=== PATIENT | female | born 1980 | race Caucasian/White ===

== ENCOUNTER 2018-04-19 11:45 | Inpatient (IN) | payer MEDICAID ==
[~2018-04-19] VITALS: Ht 160 cm; Wt 159.7 kg
[2018-04-19 11:53] VITALS: BP 159/93
--- NOTE | 2018-04-19 11:57 | NUR ---
PT AMBULATED TO ER BED 02
--- NOTE | 2018-04-19 12:15 | NUR ---
PATIENT PRESENTS TO ED WITH THE CHIEF C/O COLD SYMPTOMS AND LOWER BACK PAIN SINCE 3 DAYS. PT STATES SHE IS HAVING BLOOD IN SPUTUM FOR 3 DAYS. PT REPORTS FEVER, CHILLS AND VOMITING. AFEBRILE AT THIS TIME. WHEEZING LEFT LUNG. DENIES ANY FALL OR INJURY. . DENIES N/D AT THIS TIME. SKIN IS PINK/WARM/DRY. AAOX4 WITH EVEN AND STEADY GAIT. HR EVEN AND REGULAR. PT C/O SOB, AND DIZZINESS AFTER COUGH. PATIENT STATES PAIN OF 10/10 AT THIS TIME. VSS. PATIENT POSITIONED FOR COMFORT; HOB ELEVATED; BEDRAILS UP X2; BED DOWN. ER MD MADE AWARE OF PT STATUS.
[2018-04-19] MEDS ORDERED: KETOROLAC 60 MG/2 ML VIAL IM ONE (12:20)
--- NOTE | 2018-04-19 12:24 | NUR ---
SEEN BY ANAND LAWTON.
--- NOTE | 2018-04-19 12:25 | NUR ---
PT UNABLE TO GIVE ENOUGH URINE SAMPLE. PROVIDED WATER TO DRINK.
--- NOTE | 2018-04-19 12:34 | NUR ---
FLU SWAB TAKEN BY LAB.
--- NOTE | 2018-04-19 12:35 | NUR ---
PT TAKEN TO X-RAY.
[2018-04-19] MEDS ORDERED: NACL 0.9% 1,000 ML IV SCH (13:44)
[2018-04-19] MEDS ORDERED: IPRATROPIUM 0.02% 0.5 MG/2.5 ML NEBU INH ONE (13:45)
[2018-04-19] MEDS ORDERED: ALBUTEROL 0.083% 2.5 MG/3 ML NEBU INH ONE (13:45)
[2018-04-19] MEDS ORDERED: AZITHROMYCIN 250 MG TAB PO ONE (13:45)
--- NOTE | 2018-04-19 14:02 | NUR ---
[facility] THERAPY AND RESPIRATORY DRUGS GIVEN ORDERED Addendum: 04/19/18 at 1430 by MCACPA POST [facility] THERAPY PLACED BACK ON SUPPLEMENTAL OXYGEN AT 2 LPM VIA NC
[2018-04-19 14:06] LABS: BASOPHILS % (AUTO) 0.4 % (0.0-2.0); EOSINOPHILS # (AUTO) 0.1 K/uL (0-0.4); EOSINOPHILS % (AUTO) 1.5 % (0.0-4.0); HEMATOCRIT 37.6 % (36-48); HEMOGLOBIN 12.3 g/dL (12.0-16.0); LYMPHOCYTES # (AUTO) 0.8 K/uL (2.5-16.5); LYMPHOCYTES % (AUTO) 15.7 % (20.5-51.1); MEAN CORPUSCULAR HEMOGLOBIN 28 pg (27-31); MEAN CORPUSCULAR HGB CONC 33 g/dL (33-37); MEAN CORPUSCULAR VOLUME 86.4 fL (80-94); MONOCYTES # (AUTO) 0.4 K/uL (0.8-1.0); MONOCYTES % (AUTO) 8.8 % (1.7-9.3); NEUTROPHILS # (AUTO) 3.8 K/uL (1.8-7.7); NEUTROPHILS % (AUTO) 73.6 % (42.2-75.2); PLATELET COUNT (AUTO) 227 K/uL (140-450); RED BLOOD CELL COUNT(AUTO) 4.36 MIL/uL (4.20-5.40); RED CELL DISTRIBUTION WIDTH 16.1 % (11.6-13.7); WHITE BLOOD COUNT (AUTO) 5.1 K/uL (4.8-10.8)
[2018-04-19 14:20] LABS: CARBON DIOXIDE 28.5 mmol/L (21-32)
[2018-04-19 14:28] LABS: ALBUMIN 3.3 g/dL (3.4-5.0); ANION GAP 10.4 (8-16); CREATININE 0.7 mg/dL (0.6-1.3); POTASSIUM 3.9 mmol/L (3.5-5.1); TOTAL BILIRUBIN 0.3 mg/dL (0.0-1.0)
[2018-04-19] MEDS ORDERED: cefTRIAXone 1,000 MG VIAL ONE (14:51)
[2018-04-19] MEDS ORDERED: OSELTAMIVIR PHOSPHATE 75 MG CAP PO ONE (15:05)
[2018-04-19] MEDS ORDERED: IBUP-2213 PO (16:04)
[2018-04-19 16:14] LABS: APPEARANCE,URINE CLEAR (CLEAR); BILIRUBIN,URINE NEGATIVE (NEGATIVE); BLOOD, URINE TRACE-L (NEGATIVE); COLOR,URINE YELLOW (YELLOW); LEUKOCYTE ESTERASE ,URINE TRACE (NEGATIVE); NITRITE, URINE NEGATIVE (NEGATIVE); UGLUCOSE NEGATIVE (NEGATIVE)
[2018-04-19 16:31] LABS: RBC,URINE 0-5 /HPF (0-5)
[2018-04-19 16:32] LABS: WBC,URINE 0-5 /HPF (0-5)
[2018-04-19] MEDS: NACL 0.9% 1,000 ML IV SCH (16:35)
[2018-04-19] MEDS ORDERED: ZOLPIDEM 5 MG TAB PO PRN (16:35)
[2018-04-19] MEDS ORDERED: DOCUSATE SODIUM 100 MG GELCAP PO PRN (16:35)
[2018-04-19] MEDS ORDERED: ONDANSETRON 4 MG/2 ML VIAL IM/IVP PRN (16:35)
[2018-04-19] MEDS ORDERED: LORazepam 2 MG/ML VIAL IM/IVP PRN (16:35)
[2018-04-19] MEDS ORDERED: KETOROLAC 30 MG/ML VIAL IVP PRN (16:35)
[2018-04-19] MEDS: MORPHINE SULFATE 2 MG/ML SYR IVP PRN ×2 (16:52→20:34)
[2018-04-19] MEDS ORDERED: guaiFENesin/CODEINE 100/10MG 5 ML UDC PO PRN (16:55)
--- NOTE | 2018-04-19 17:00 | NUR ---
PT TRANSFERRED TO MED/SURG ROOM 106B VIA GURROBERT LEE ON STABLE CONDITION. BELONGINGS WITH PT. REPORT GIVEN TO ESTELA PEACOCK.
[2018-04-19 17:15] VITALS: BP 123/67
--- NOTE | 2018-04-19 17:30 | NUR ---
RECEIVED PT FROM ED NURSE NATIVIDAD. PT IS ALERT AND AWAKE, MAINLY TURKISH SPEAKING, BUT UNDERSTANDS AND SPEAKS SOME KHMER. DAUGHTER AT BEDSIDE. PT IS ON ROOM AIR, SKIN IS INTACT. IV SITE IS ON THE L HAND, 22 GAUGE, PATENT AND INTACT. VS STABLE, TEMP 99.4. BRSA SWAB COLLECTED AND SMALL AMOUNT OF SPUTUM OBTAINED, WILL TAKE TO LAB. PT IS AMBULATORY. CALL LIGHT GIVEN TO PT. WILL CONTINUE TO MONITOR.
[2018-04-19 17:52] LABS: BARBITURATE, URINE NEG. ng/ml (NEG <=200); BENZODIAZEPINE, URINE NEG. ng/mL (NEG <=200); CANNABINOID, URINE NEG. ng/mL (NEG <=50); COCAINE, URINE NEG. ng/mL (NEG <=300); OPIATE, URINE NEG. ng/mL (NEG <=2000); PHENCYCLIDINE SCREEN,URINE NEG. ng/mL (NEG <=25)
[2018-04-19 17:58] LABS: PROTHROMBIN TIME 9.9 secs (10.8-13.4)
[2018-04-19 17:59] LABS: MAGNESIUM 1.9 mg/dL (1.8-2.4); THYROID STIMULATING HORMONE 4.14 uIU/mL (0.34-3.74)
[2018-04-19] MEDS: AMPICILLIN/SULBACTAM 3 GM in NACL 0.9% 100 ML IV SCH ×2 (18:25→23:39)
[2018-04-19] MEDS: ALBUTEROL SULFATE/IPRATROPIU 3 ML SOL IH SCH (18:43)
--- NOTE | 2018-04-19 18:50 | NUR ---
RT CURRENTLY WORKING WITH PT. PT'S RA SAT IS 85%, RT THERAPIST IS PLACING PT ON 2 L O2 NC AT THIS TIME.
--- NOTE | 2018-04-19 19:27 | NUR ---
PT ENDORSED TO ALLERGY AND IMMUNOLOGY SPECIALIST IN STABLE CONDITION
--- NOTE | 2018-04-19 19:30 | NUR ---
RECEIVED ENDORSEMENT FROM AM SHIFT RN; PATIENT IS A/Ox4, TURKMEN SPEAKING, BUT UNDERSTANDS AND SPEAKS SOME [place]. ABLE TO MAKE NEEDS KNOWN. DAUGHTER AT BEDSIDE. INTRODUCED SELF, UPDATED BOARD. PT IS ON O2, RUNNING AT 2LPM VIA NASAL CANNULA, NO SOB OR DISTRESS NOTED. SKIN IS INTACT. IV SITE IS ON THE L HAND, 22 GAUGE, PATENT AND INTACT. PATIENT IS AMBULATORY. BED IN THE LOWEST POSITION, CALL LIGHT WITHIN REACH. INITIAL ASSESSMENT DONE. WILL CONTINUE TO MONITOR.
[2018-04-19] MEDS: guaiFENesin 600 MG TABER PO SCH (20:29)
[2018-04-19] MEDS: ACETAMINOPHEN 325 MG TAB PO PRN (21:28)
--- NOTE | 2018-04-19 22:10 | NUR ---
CHECKS MADE, PATIENT IS SITTING ON CHAIR AND TALKING WITH HER DAUGHTER. NO DISTRESS NOTED.
[2018-04-20] VITALS: BP 122/68
--- NOTE | 2018-04-20 00:30 | NUR ---
VITALS TAKEN, NO DISTRESS NOTED.
[2018-04-20] MEDS: NACL 0.9% 1,000 ML IV SCH ×3 (00:44→19:53)
[2018-04-20] MEDS: ALBUTEROL SULFATE/IPRATROPIU 3 ML SOL IH PRN ×2 (01:46→21:43)
--- NOTE | 2018-04-20 02:30 | NUR ---
ROUNDS DONE, PATIENT ASLEEP, EYES CLOSED, VISIBLE CHEST RISE AND FALL NOTED.
[2018-04-20] MEDS: AMPICILLIN/SULBACTAM 3 GM in NACL 0.9% 100 ML IV SCH (05:10)
--- NOTE | 2018-04-20 05:10 | NUR ---
DUE MED GIVEN. PATIENT AWAKE, ASKED IF SHE WAS IN ANY DISTRESS, VERBALLY RESPONDED WITH "NO. I AM OK".
[2018-04-20 06:38] LABS: BASOPHILS % (AUTO) 0.3 % (0.0-2.0); EOSINOPHILS % (AUTO) 0.4 % (0.0-4.0); HEMATOCRIT 35.5 % (36-48); HEMOGLOBIN 11.8 g/dL (12.0-16.0); LYMPHOCYTES % (AUTO) 19.4 % (20.5-51.1); MEAN CORPUSCULAR HEMOGLOBIN 29 pg (27-31); MEAN CORPUSCULAR HGB CONC 33 g/dL (33-37); MEAN CORPUSCULAR VOLUME 85.9 fL (80-94); MONOCYTES # (AUTO) 0.4 K/uL (0.8-1.0); MONOCYTES % (AUTO) 8.1 % (1.7-9.3); NEUTROPHILS # (AUTO) 3.6 K/uL (1.8-7.7); NEUTROPHILS % (AUTO) 71.8 % (42.2-75.2); PLATELET COUNT (AUTO) 222 K/uL (140-450); RED BLOOD CELL COUNT(AUTO) 4.13 MIL/uL (4.20-5.40); RED CELL DISTRIBUTION WIDTH 15.8 % (11.6-13.7)
[2018-04-20 06:41] LABS: CARBON DIOXIDE 25.5 mmol/L (21-32); CREATININE 0.7 mg/dL (0.6-1.3); POTASSIUM 3.5 mmol/L (3.5-5.1)
[2018-04-20 06:48] LABS: CHOL/HDL RATIO 4.2 (1-4.5)
--- NOTE | 2018-04-20 07:05 | NUR ---
ENDORSED PATIENT TO AM SHIFT RN; PATIENT IN STABLE CONDITION.
[2018-04-20] MEDS: ALBUTEROL SULFATE/IPRATROPIU 3 ML SOL IH SCH ×3 (07:15→18:25)
--- NOTE | 2018-04-20 07:25 | NUR ---
RECEIVED REPORT FROM MILL CONTROL OPERATOR NURSE. PATIENT LYING DOWN IN BED SLEEPING, AROUSABLE BY VOICE. DAUGHTER AT BEDSIDE. NO DISTRESS NOTED. DENIES ANY PAIN. RESPIRATIONS EVEN, UNLABORED, ON O2 2L/MIN VIA NC. LUNGS CRACKLES ON B/L LOBES. AAOX4, CALM, COOPERATIVE, SKIN COLOR APPROPRIATE TO ETHNICITY, WARM TO TOUCH. SKIN INTACT. ABDOMEN SOFT, OBESE. IV SITE INTACT, PATENT, AND INFUSING IVF PER MD ORDERS. REVIEWED PLAN OF CARE WITH PATIENT. SAFETY MEASURES IN PLACE, CALL LIGHT WITHIN REACH. WILL CONTINUE TO MONITOR.
[2018-04-20 08:00] VITALS: BP 150/89
--- NOTE | 2018-04-20 08:00 | NUR ---
PATIENT HAS BEEN SCREENED AND CATEGORIZED HIGH NUTRITION RISK. PATIENT WILL BE SEEN WITHIN 1-2 DAYS OF ADMISSION. 04/20/18-04/21/[address]
[2018-04-20] MEDS ORDERED: AZITHROMYCIN 250 MG in DEXTROSE 5% 250 ML IV SCH (09:00)
[2018-04-20] MEDS: LACTOBACILLUS RHAMNOSUS GG 1 EACH CAP PO SCH (09:28)
[2018-04-20] MEDS: BACLOFEN 10 MG TAB PO SCH ×3 (09:28→17:42)
[2018-04-20] MEDS: guaiFENesin 600 MG TABER PO SCH ×2 (09:28→20:45)
--- NOTE | 2018-04-20 09:29 | NUR ---
PATIENT LYING DOWN COMFORTABLY. NO DISTRESS NOTED. SCHEDULED MEDICATIONS DUE GIVEN. WILL CONTINUE TO MONITOR.
[2018-04-20] MEDS ORDERED: PIPER/TAZO 3.375GM/D5W PREMIX 50 ML IV SCH (12:00)
[2018-04-20] MEDS: PIPER/TAZO 3.375GM/D5W PREMIX 50 ML IV SCH ×2 (12:37→17:42)
--- NOTE | 2018-04-20 15:50 | NUR ---
04/20/18 RD INITIAL ASSESSMENT COMPLETED PLEASE REFER TO NUTRITION ASSESSMENT UNDER CARE ACTIVITY FOR ESTIMATED NUTRITIONAL NEEDS. 1. RECOMMEND CARDIAC DIET WITH RECOMMENDED FOOD TEXTURE MODIFICATIONS AND LIQUID CONSISTENCY PER SWALLOW EVAL 2. RD PROVIDED NUTRITION EDUCATION ON HEALTHY EATING, WEIGHT MANAGEMENT AND LOWERING CHOLESTEROL 3. RD TO FOLLOW-UP 3-5 DAYS, MODERATE RISK MAIDA ANDREA RD
[2018-04-20 16:00] VITALS: BP 136/88
--- NOTE | 2018-04-20 17:46 | NUR ---
SCHEDULED MEDICATIONS DUE GIVEN. WILL CONTINUE TO MONITOR.
--- NOTE | 2018-04-20 19:35 | NUR ---
RECEIVED REPORT FROM JOAQUIN PALMER DAYSHIFT NURSE AT BEDSIDE FOR CONTINUITY OF CARE, PT IN STABLE CONDITION.
--- NOTE | 2018-04-20 19:35 | NUR ---
GAVE REPORT TO ARTS ADMINISTRATOR NURSE FOR CONTINUITY OF CARE. PATIENT IN STABLE CONDITION.
[2018-04-20 20:00] VITALS: BP 135/81
--- NOTE | 2018-04-20 20:00 | NUR ---
PT SITTING UP IN BED AOX3 ON 3 LITERS VIA N/C WITH NO S/S OF PAIN OR DISTRESS NOTED. DAUGHTER SITTING AT BEDSIDE. V/S FOLLOWS T 98.3 P 90 R 20 B/P 144/92 02 92 WITH 2 LITERS VIA N/C. PT LUNG SOUNDS DIMINISHED BILATERALLY. BOWEL SOUNDS ACTIVE. PT ABLE TO AMBULATE SHORT DISTANCES BUT GETS OUT OF BREATH.
--- NOTE | 2018-04-20 20:30 | NUR ---
PT GIVEN ORDERED MUCINEX. PT SAID THAT HER COUGH PRODUCED LITTLE PHLEGM. SPUTUM COLLECTED YESTERDAY. SPOKE WITH DOCTOR SINGER CONCERNING HEPARIN SQ SHOT. PLATELETS 222 AND PT IS 9.9. DR PONCE SAID OK TO GIVE HEPARIN SHOT. PT ALSO REQUEST AMBIEN SLEEPING PILL AND BIPAP.
--- NOTE | 2018-04-20 21:00 | NUR ---
SPOKE WITH PT VIA [employer] BUSINESS EDITOR PHONE SYSTEM WITH [employer] BUSINESS EDITOR # [id number]. TOLD PT THAT SHE DOESN'T HAVE AN ORDER FOR THE BIPAP MACHINE. SHE SAID THAT SHE WANTED A BREATHING TREATMENT. ON EMAR, NEB TREATMENT ORDERED AND DELIVERED AT 7PM. PT DOES ALSO HAVE PRN ORDER. SPOKE WITH NETTIE DAILEY AND HE SAID THAT HE BE BACK LATER TO GIVE HER A TREATMENT BECAUSE SHE HAD HER TREATMENT AT 7PM. PT IS NOT CURRENTLY IN ANY DISTRESS. PT ACKNOWLEDGED THAT SHE WILL WAIT FOR NEB TREATMENT. PT HAS NO S/S OF DISTRESS SHE IS JUST TIRED AND WANTS TO GO TO SLEEP, HOWEVER PT DOESNT WANT REQUESTED AMBIEN BECAUSE SHE DOESNT WANT TO MISS NEB TREATMENT. PT SITTING UP IN BED NO S/S OF DISTRESS. HOWEVER PT GETS SHORT OF BREATH WHEN SHE MOVES AROUND. PT SITTING UP IN BED NO W/W OF PAIN OR DISTRESS NOTED. CALL DHILLON IN REACH. LALITIEN RETURNED .
--- NOTE | 2018-04-20 21:38 | NUR ---
HEPARIN SHOT GIVEN. MULUGETA RT AT BEDSIDE EVALUATING PT.
--- NOTE | 2018-04-21 00:47 | NUR ---
PT REQUESTING SLEEPING PILL, WHEN ENTERED THE ROOM, PT ALREADY SLEEPING SOUNDLY, NOT AROUSABLE TO NAME AND LIGHT TOUCH. MEDICATION RETURNED.
--- NOTE | 2018-04-21 02:00 | NUR ---
VQ SCAN AT BEDSIDE IN PROGRESS. COMMODITY ANALYST REQUESTED INFORMATION REGARDING NEGATIVE TEST, PROVIDED BY ER A PRINT OUT OF NEGATIVE TEST PROVIDED.
--- NOTE | 2018-04-21 04:00 | NUR ---
VQ SCAN DONE. AT BEDSIDE. QUANTITATIVE DEVELOPER SAID TO KEEP AN EYE OUT FOR RESULT FOR POSSIBLE PE. PT SLEEPING IN BED NO S/S OF PAIN OR DISTRESS NOTED.
--- NOTE | 2018-04-21 05:00 | NUR ---
ANASTACIA FROM [facility] CALLED IN A CRITICAL RESULT FOR VQ SCAN. A HIGH PROBABILITY FOR PE. RESIDENT MD MADE AWARE NEW ORDERS NOTED FOR TELEMETRY MONITORING AND HEPARIN GTT.
[2018-04-21] MEDS ORDERED: hePARIN / DEXT 5% PREMIX 250 ML IV SCH (05:05)
[2018-04-21] MEDS ORDERED: HEPARIN PER PHARMACY MC PRN (05:05)
[2018-04-21] MEDS: NACL 0.9% 1,000 ML IV SCH ×3 (05:49→23:11)
[2018-04-21] MEDS: PIPER/TAZO 3.375GM/D5W PREMIX 50 ML IV SCH ×4 (05:50→17:32)
--- NOTE | 2018-04-21 06:48 | NUR ---
HEAPIN GTTT STARTED 06. BOLUS GIVEN AND RATE IS 29UNITS/MLS/HR. NEXT BLOOD DRAW ORDERED FOR 1241.
--- NOTE | 2018-04-21 06:49 | NUR ---
NEW IV SITE PROVIDED FOR HEPARIN GTT RIGHT HAND 22GUAGE.
[2018-04-21 06:51] LABS: ANION GAP 11.5 (8-16); CARBON DIOXIDE 26.9 mmol/L (21-32); CREATININE 0.6 mg/dL (0.6-1.3); POTASSIUM 3.4 mmol/L (3.5-5.1)
[2018-04-21] MEDS: ALBUTEROL SULFATE/IPRATROPIU 3 ML SOL IH SCH ×3 (07:15→18:38)
--- NOTE | 2018-04-21 07:30 | NUR ---
REPORT GIVEN TO GISELLE FOR CONTINUITY OF CARE, PT IN STABLE CONDITION.
--- NOTE | 2018-04-21 07:35 | NUR ---
RECEIVED PT WITH PUMP INFUSING HEPARIN DRIP TURNED OFF. MARKET RESEARCHER RN ABENA RESTARTED AT 29 UNITS/HR. PER HEP DRIP ORDERS, RATE SHOULD BE 2900 U/HR. ASKED PHARMACY. PHARMACIST TO CALL ME BACK. Addendum: 04/21/18 at 1519 by Catherine Quinones Meng RN RECEIVED BEDSIDE REPORT FROM MARKET RESEARCHER RN FOR CONTINUITY OF CARE. PT IN STABLE CONDITION. AOX3. NO S/S ACUTE DISTRESS. RESPIRATIONS EVEN AND UNLABORED. C/O 04/18 HEADACHE, WILL ADMIN TYLENOL PER MD ORDERS. SKIN INTACT. PT IS AMBULATORY WITHOUT ASSIST. ALL SAFETY PRECAUTIONS IN PLACE, WILL CONTINUE TO MONITOR.
[2018-04-21] MEDS: ACETAMINOPHEN 325 MG TAB PO PRN ×3 (07:38→21:35)
[2018-04-21 08:00] VITALS: BP 108/62
[2018-04-21] MEDS: BACLOFEN 10 MG TAB PO SCH ×3 (08:43→17:31)
[2018-04-21] MEDS: LACTOBACILLUS RHAMNOSUS GG 1 EACH CAP PO SCH (08:43)
[2018-04-21] MEDS: guaiFENesin 600 MG TABER PO SCH ×2 (08:43→21:35)
--- NOTE | 2018-04-21 08:45 | NUR ---
HEPARIN DRIP CHANGED TO 1500U/HR. APPT DRAW CHANGED TO REFLECT- PHARMACY AWARE. Addendum: 04/21/18 at 0850 by Catherine Quinones Meng, RN 1500 UNITS/HR
[2018-04-21] MEDS: hePARIN / DEXT 5% PREMIX 250 ML IV SCH ×2 (08:47→16:29)
[2018-04-21 12:00] VITALS: BP 110/57
[2018-04-21] MEDS ORDERED: POTASSIUM CHLORIDE 40 MEQ, LIDOCAINE MPF 1% - 5 mL VIAL 25 MG in NACL 0.9% 250 ML IV ONE (12:05)
[2018-04-21 12:54] LABS: BASOPHILS % (AUTO) 0.6 % (0.0-2.0); EOSINOPHILS % (AUTO) 0.6 % (0.0-4.0); HEMATOCRIT 35.3 % (36-48); HEMOGLOBIN 11.5 g/dL (12.0-16.0); LYMPHOCYTES # (AUTO) 1.7 K/uL (2.5-16.5); LYMPHOCYTES % (AUTO) 29.2 % (20.5-51.1); MEAN CORPUSCULAR HEMOGLOBIN 29 pg (27-31); MEAN CORPUSCULAR HGB CONC 33 g/dL (33-37); MEAN CORPUSCULAR VOLUME 87.3 fL (80-94); MONOCYTES # (AUTO) 0.6 K/uL (0.8-1.0); MONOCYTES % (AUTO) 10.1 % (1.7-9.3); NEUTROPHILS # (AUTO) 3.4 K/uL (1.8-7.7); NEUTROPHILS % (AUTO) 59.5 % (42.2-75.2); PLATELET COUNT (AUTO) 229 K/uL (140-450); RED BLOOD CELL COUNT(AUTO) 4.04 MIL/uL (4.20-5.40); RED CELL DISTRIBUTION WIDTH 15.9 % (11.6-13.7); WHITE BLOOD COUNT (AUTO) 5.7 K/uL (4.8-10.8)
--- NOTE | 2018-04-21 13:29 | NUR ---
HEPARIN DRIP INFUSING THROUGH RT HAND #20. ALL OTHER IVF AND IVPB INFUSING THROUGH RT AC #22. ADMINISTERED TYLENOL FOR C/O HEADACHE. PT STATES THE TYLENOL ADMINISTERED EARLIER AT 0738 HELPED DECREASE THE ARREOLA PAIN.
--- NOTE | 2018-04-21 13:59 | NUR ---
S.T. BEDSIDE SWALLOW EVAL COMPLETED Pt presents with adequate oropharyngeal swallow function with no overt s/s aspiration observed across textures given. Pt is able to self-feed without difficulty and does not appear to be at risk for aspiration at this time. Recommend: 1) Continue regular diet, thin liquids okay. 2) P.O. meds as tolerated. No further tx indicated at this time. DC to [facility]. Time [phone]
--- NOTE | 2018-04-21 15:46 | NUR ---
PER DR. MCGOWAN, PT C/O RT AC IV SITE PAIN. ENTERED THE ROOM TO INSERT NEW IV BUT PT STATES PAIN HAS SUBSIDED. ASKED PT TO USE CALL LIGHT TO NOTIFY ME IF SHE EXPERIENCE IV SITE PAIN AGAIN.
[2018-04-21 16:49] VITALS: BP 120/74
--- NOTE | 2018-04-21 17:00 | NUR ---
PT STILL C/O BURNING AT IV SITE RUNNING K RIDER W/ LIDOCAINE AFTER CHANGING IV SITE. CHANGED K RIDER RATE TO 28 HR/HR AND PT STATES PAIN IS GONE. Addendum: 04/21/18 at 1740 by Catherine Quinones Meng, RN 28 ML/HR
--- NOTE | 2018-04-21 18:19 | NUR ---
DISCONTINUED HEPARIN DRIP.
--- NOTE | 2018-04-21 19:22 | NUR ---
ENDORSED POC TO LEMON GROWER RN. PT IN STABLE CONDITION.
--- NOTE | 2018-04-21 19:23 | NUR ---
RECEIVED REPORT FROM DAY SHIFT. PT SITTING IN BED. NO C/O PAIN OR SOB NOTED. FAMILY MEMBER AT BEDSIDE. IV TO RIGHT WRIST #22G AND RIGHT HAND #22G, PATENT AND INTACT. DISCUSSED PLAN OF CARE, PT VERBALIZED UNDERSTANDING. SAFETY PRECAUTION IN PLACE. CALL LIGHT WITHIN REACH.
[2018-04-21 20:00] VITALS: BP 137/66
--- NOTE | 2018-04-21 21:35 | NUR ---
PT C/O HEADACHE 04/18. TYLENOL 650 MG PO GIVEN.
[2018-04-21] MEDS: RIVAROXABAN 15 MG TAB PO SCH (21:37)
[2018-04-22] VITALS: BP 126/62
[2018-04-22] MEDS: PIPER/TAZO 3.375GM/D5W PREMIX 50 ML IV SCH ×5 (00:24→23:54)
--- NOTE | 2018-04-22 00:25 | NUR ---
PT SLEEPING BUT EASILY AROUSABLE. NO S/S OF PAIN OR RESP DISTRESS NOTED. DUE IV ANTIBIOTIC ADMINISTERED.
--- NOTE | 2018-04-22 03:00 | NUR ---
PT SLEEPING. RESP EVEN AND UNLABORED. NO S/S OF PAIN OR DISCOMFORT.
[2018-04-22 04:00] VITALS: BP 130/71
--- NOTE | 2018-04-22 05:30 | NUR ---
PT SITTING ON BED, AWAKE. NO C/O PAIN OR SOB. ALL NEEDS MET AT THIS TIME.
[2018-04-22 06:48] LABS: BASOPHILS % (AUTO) 0.4 % (0.0-2.0); EOSINOPHILS # (AUTO) 0.2 K/uL (0-0.4); EOSINOPHILS % (AUTO) 2.5 % (0.0-4.0); HEMATOCRIT 35.7 % (36-48); HEMOGLOBIN 11.7 g/dL (12.0-16.0); LYMPHOCYTES % (AUTO) 30.3 % (20.5-51.1); MEAN CORPUSCULAR HEMOGLOBIN 29 pg (27-31); MEAN CORPUSCULAR HGB CONC 33 g/dL (33-37); MEAN CORPUSCULAR VOLUME 86.8 fL (80-94); MONOCYTES # (AUTO) 0.8 K/uL (0.8-1.0); MONOCYTES % (AUTO) 12.3 % (1.7-9.3); NEUTROPHILS # (AUTO) 3.6 K/uL (1.8-7.7); NEUTROPHILS % (AUTO) 54.5 % (42.2-75.2); PLATELET COUNT (AUTO) 230 K/uL (140-450); RED BLOOD CELL COUNT(AUTO) 4.11 MIL/uL (4.20-5.40); RED CELL DISTRIBUTION WIDTH 15.6 % (11.6-13.7); WHITE BLOOD COUNT (AUTO) 6.6 K/uL (4.8-10.8)
[2018-04-22 07:20] LABS: ANION GAP 12.1 (8-16); CREATININE 0.7 mg/dL (0.6-1.3); POTASSIUM 4.1 mmol/L (3.5-5.1)
--- NOTE | 2018-04-22 07:24 | NUR ---
ENDORSED PT TO DAY SHIFT NURSE. PT IN STABLE CONDITION.
--- NOTE | 2018-04-22 07:30 | NUR ---
RECEIVED REPORT FROM DENTAL SERVICES DIRECTOR RN AT BEDSIDE. PT SLEEPING IN BED. ROUSED BY NAME, AAOX4, PRIMARY LANGUAGE MOLDOVAN. NO C/O PAIN OR SOB NOTED. IV TO RIGHT WRIST #22G AND RIGHT HAND #22G, PATENT, INTACT AND ASYMPTOMATIC, IV CATH ON RIGHT WRIST IS RUNNING NS AT 110ML/HR. DISCUSSED PLAN OF CARE, PT VERBALIZED UNDERSTANDING. SAFETY PRECAUTION IN PLACE. CALL LIGHT WITHIN REACH.
[2018-04-22] MEDS: ALBUTEROL SULFATE/IPRATROPIU 3 ML SOL IH SCH ×3 (07:39→19:47)
[2018-04-22 08:00] VITALS: BP 106/58
[2018-04-22] MEDS: BACLOFEN 10 MG TAB PO SCH ×3 (08:35→16:39)
[2018-04-22] MEDS ORDERED: RIVA15TA1 PO (08:36)
[2018-04-22] MEDS: guaiFENesin 600 MG TABER PO SCH ×2 (08:44→21:24)
[2018-04-22] MEDS: LACTOBACILLUS RHAMNOSUS GG 1 EACH CAP PO SCH (08:44)
[2018-04-22] MEDS: RIVAROXABAN 15 MG TAB PO SCH ×2 (08:49→21:25)
--- NOTE | 2018-04-22 09:15 | NUR ---
ALL MEDS GIVEN SCHEDULED. STEEL TIER #[id number] USED TO CLARIFY MEDS AND SIDE EFFECTS WITH PT. PT VERBALIZED UNDERSTANDING.
--- NOTE | 2018-04-22 10:51 | NUR ---
PER DR JOYCE MCGOWAN TITRATE FIO2 TO ROOM AIR FOR SATURATION GREATER THAN 88% NORMA/MERCHANDISING SPECIALIST AND GETACHEW/RN NOTIFIED OFF SUPPLEMENTAL OXYGEN NOW
--- NOTE | 2018-04-22 11:28 | NUR ---
decreased pressure support to 12 rn aware
--- NOTE | 2018-04-22 11:30 | NUR ---
PT IS ON ROOM AIR, O2 SAT 89-90%. NO S/S OF SOB. AMBULATED WITH PATIENT FOR ABOUT 150FT, O2 SAT DROPS TO 82-83% DURING THE WALK. PT SAFELY RETURNED TO BED, RESTING IN BED, O2 SAT WENT BACK TO 91% AFTER 2 MIN. PLACED PT ON O2 2L VIA NC.
[2018-04-22 12:00] VITALS: BP 123/74
--- NOTE | 2018-04-22 14:04 | NUR ---
Faxed clinicals to [facility] fax # per request by Catherine FRAGOSO .
--- NOTE | 2018-04-22 14:08 | NUR ---
Spoke with Catherine FRAGOSO from [facility] , she will make arrangement for the 02 to be delivered at bedside today. Catherine FRAGOSO is aware patient is going home today.
--- NOTE | 2018-04-22 15:20 | NUR ---
PT DID NOT LIKE THE HOSP LUNCH, ONLY HAD JELLO AND JUICE, FAMILY BROUGHT FOOD FROM HOME.
[2018-04-22] MEDS: ACETAMINOPHEN 325 MG TAB PO PRN ×2 (15:45→23:54)
[2018-04-22 16:00] VITALS: BP 110/59
--- NOTE | 2018-04-22 16:29 | NUR ---
DISCHARGE INSTRUCTIONS AND MEDS TEACHING PROVIDED. CLOCK SMITH [phone] USED. MADE PT AWARE OF THE SCHEDULE MD APPOINTMENT. HER RX HAS BEEN SENT TO [facility] ON [address]. PT VERBALIZED UNDERSTANDING. PT IS WAITING FOR OXYGEN EQUIPMENT TO BE DELIVERED.
--- NOTE | 2018-04-22 17:30 | NUR ---
Called Génesis FRAGOSO from [facility] , left a message inquiring what time the 02 will delivered here in the hospital. Left the number in [facility] for call back.
--- NOTE | 2018-04-22 17:59 | NUR ---
CALLED [facility] [phone], REQUESTING ETA FOR O2 DELIVERY, PROVIDED CALL BACK NUMBER AND PT'S NAME AND . WAITING FOR CALL BACK
--- NOTE | 2018-04-22 18:40 | NUR ---
MIGUEL CALLED BACK, SAYING WILL FIND OUT ETA AND CALL BACK.
--- NOTE | 2018-04-22 19:20 | NUR ---
REPORT GIVEN TO CATTLE SPRAYER RN. PT IN STABLE CONDITION.
--- NOTE | 2018-04-22 19:30 | NUR ---
RECEIVED REPORT FROM DAY SHIFT NURSE FOR CONTINUITY OF CARE. PATIENT IS AWAKE, ALERT, AND COOPERATIVE. RESPIRATION EVEN UNLABORED ON 2L OF O2 VIA NC. NO DISTRESS NOTED. FAMILY AT BEDSIDE. SKIN IS WARM AND DRY. ALL SAFETY MEASURE ARE IN PLACE. AWAITING FOR O2 TO BE DELIVER IN ORDER TO GO HOME. CALLED [facility] ALREADY AND AWAITING FOR THE ETA OF OXYGEN. BED IS AT LOW POSITION. CALL LIGHT WITHIN REACH AND PATIENT VERBALIZES ITS USE. WILL CONTINUE TO MONITOR.
--- NOTE | 2018-04-22 19:45 | NUR ---
CALLED KRISTIN FROM [facility] REGARDING THE ETA FOR 02 DELIVERY. DELIVERY STATUS STILL UNKNOWN. [facility] WILL CALL BACK SOON THEY GET MORE INFORMATION.
[2018-04-22 20:00] VITALS: BP 128/82
--- NOTE | 2018-04-22 20:00 | NUR ---
INITIAL ASSESSMENT DONE. VITALS WERE TAKEN. PATIENT CONDITION STABLE. NO DISTRESS NOTED. FAMILY AT BEDSIDE. WILL CONTINUE TO MONITOR AND FOLLOW UP WITH [facility] REGARDING O2 DELIVERY STATUS
--- NOTE | 2018-04-22 20:23 | NUR ---
CALLED [facility] AGAIN REGARDING ABOUT THE ETA OF O2 DELIVERY. STATUS STILL UNKNOWN. PROBABLY WILL FOLLOW UP TOMORROW. WILL NOTIFY THE PATIENT.
--- NOTE | 2018-04-22 21:10 | NUR ---
SCHEDULE MEDS WERE GIVEN PER ORDER AND PATIENT TOLERATED WELL. CALL LIGHT WITHIN REACH. WILL CONTINUE TO MONITOR
--- NOTE | 2018-04-22 22:30 | NUR ---
HOME O2 COULDN'T BE DELIVERED TODAY. PATIENT WILL STAY FOR ONE MORE NIGHT AND WILL BE DISCHARGE WHEN THE O2 IS AVAILABLE. DR. PONCE WAS NOTIFIED. ORDERED TO CONTINUE ALL SCHEDULE MEDS THAT IS DUE.
--- NOTE | 2018-04-22 23:00 | NUR ---
PATIENT PLACED IN SEMI-REHMAN WATCHING TV RESPIRATION EVEN UNLABORED ON O2 2L NC. NO DISTRESS NOTED. WILL CONTINUE TO MONITOR
--- NOTE | 2018-04-22 23:50 | NUR ---
PATIENT COMPLAINED OF PAIN 3/10 HEADACHE. PRN PAIN ADMINISTERED. REASSESSED AFTERWARD. PATIENT STATED 0/10 PAIN. WILL CONTINUE TO MONITOR
[2018-04-23] VITALS: BP 122/69
--- NOTE | 2018-04-23 00:10 | NUR ---
VITALS WERE TAKEN. PATIENT CONDITION STABLE. NO DISTRESS NOTED. WILL CONTINUE TO MONITOR.
--- NOTE | 2018-04-23 02:30 | NUR ---
CHECKED PATIENT. PATIENT SLEEPING RESPIRATION EVEN UNLABORED ON O2 2L VIA NC. NO DISTRESS NOTED. WILL CONTINUE TO MONITOR.
[2018-04-23 04:00] VITALS: BP 122/63
--- NOTE | 2018-04-23 04:00 | NUR ---
CHECKED PATIENT. VITALS WERE TAKEN. PATIENT CONDITION STABLE. RESPIRATION EVEN UNLABORED ON O2 2L VIA NC. NO DISTRESS NOTED. WILL CONTINUE TO MONITOR.
[2018-04-23] MEDS: PIPER/TAZO 3.375GM/D5W PREMIX 50 ML IV SCH ×2 (05:32→12:12)
--- NOTE | 2018-04-23 07:29 | NUR ---
ENDORSED PATIENT TO DAY SHIFT NURSE FOR CONTINUITY OF CARE. PATIENT STABLE AT THIS TIME.
--- NOTE | 2018-04-23 07:30 | NUR ---
RECEIVED REPORT FROM GAS ENGINE OPERATOR NURSE FOR CONTINUITY OF CARE. PT IN STABLE CONDITION. RESPIRATIONS EVEN AND UNLABORED. O2 2L VIA NC WITH HUMIDIFIER. IV INTACT PATENT. SAFETY MEASURES IN PLACE. BED IN LOW POSITION. CALL LIGHT AT BEDSIDE. WILL CONTINUE TO MONITOR.
[2018-04-23] MEDS: ALBUTEROL SULFATE/IPRATROPIU 3 ML SOL IH SCH ×3 (07:34→20:30)
[2018-04-23 08:00] VITALS: BP 140/87
[2018-04-23] MEDS: guaiFENesin 600 MG TABER PO SCH (11:16)
[2018-04-23] MEDS: ACETAMINOPHEN 325 MG TAB PO PRN (11:17)
[2018-04-23] MEDS: BACLOFEN 10 MG TAB PO SCH ×2 (11:17→14:49)
[2018-04-23] MEDS: LACTOBACILLUS RHAMNOSUS GG 1 EACH CAP PO SCH (11:17)
[2018-04-23] MEDS: RIVAROXABAN 15 MG TAB PO SCH (11:24)
--- NOTE | 2018-04-23 11:33 | NUR ---
SPOKE WITH [facility] REGARDING O2 TANK DELIVERY TO PT HOME. [facility] GAVE AUTHORIZATION #[id number] AND MERCER Draker [facility] FOR DELIVERY INFORMATION. [employer] [facility] WAS CALLED INFORMED THAT PT WAS NOT IN THE SYSTEM. I SPOKE TO ANH IN AND GAVE HER THE AUTHORIZATION NUMBER FOR FOLLOW UP.
--- NOTE | 2018-04-23 11:47 | NUR ---
[facility] . I CALLED GISELLE AGAIN AND SHE SAID SHE WOULD FOLLOW UP ABOUT THE OXYGEN AND CALL ME BACK.
[2018-04-23 12:00] VITALS: BP 135/87
--- NOTE | 2018-04-23 14:13 | NUR ---
RECE[facility] SHE SAID THE OXYGEN WILL NOW BE DELIVERED BY [facility]. PHONE [phone]. I INFORMED ANI PALMER. THEY ARE SUPPOSE TO CALL ME WITH ZAKIA.
--- NOTE | 2018-04-23 15:14 | NUR ---
PT O2 TANK WAS DELIVERED TO ROOM.
--- NOTE | 2018-04-23 17:50 | NUR ---
PT WAS GIVEN DISCHARGE INSTRUCTIONS AT THIS TIME. ALL QUESTIONS ANSWERED, PT VERBALIZED UNDERSTANDING OF INSTRUCTIONS. IV REMOVED, LUMEN INTACT. ID BAND REMOVED. PT WHEELED TO LOBBY WHERE RESPONSIBLE FAMILY MEMBER WAS WAITING WITH VEHICLE. PT IN STABLE CONDITION.
== END 2018-04-23 17:45 | disposition home or self-care (01) | DRG 134 ==
LOC: MED 11:45 → MTU 15:27
PROVIDERS: ADMIT General Practice; ATTEND General Practice
DX: I26.99 Other pulmonary embolism without acute cor pulmonale (principal); J96.01 Acute respiratory failure with hypoxia; J69.0 Pneumonitis due to inhalation of food and vomit; R65.10 Systemic inflammatory response syndrome (SIRS) of non-infectious origin without acute organ dysfunction; E44.1 Mild protein-calorie malnutrition; E66.01 Morbid (severe) obesity due to excess calories; R04.2 Hemoptysis; Z68.44 Body mass index [BMI] 60.0-69.9, adult; K21.9 Gastro-esophageal reflux disease without esophagitis; M54.5 Low back pain; Z82.49 Family history of ischemic heart disease and other diseases of the circulatory system; E02 Subclinical iodine-deficiency hypothyroidism
CPT/HCPCS: 36415; 36600; 71046; 76770; 78582; 80048; 80053; 80305; 81001; 82803; 83036; 83605; 83690; 83735; 83880; 84100; 84134; 84443; 85025; 85610; 85730; 87040; 87070; 87081; 87205; 87804; 92610; 93005; 94640; 96372; 96374; 99285; J0295; J0696; J1644; J1885; J2001; J2060; J2270; J2405; J2543; J3480; J7030; J7060; J7613; J7620; J7644; Q0092

== ENCOUNTER 2019-08-28 15:26 | Emergency (ER) | payer MEDICAID, OTHER ==
[~2019-08-28] VITALS: Ht 154.9 cm; Wt 173.8 kg
[~2019-08-28 15:26] MED LIST: IBUP-2213 PO; RIVA15TA1 PO
[2019-08-28 15:31] VITALS: BP 144/97
[2019-08-28] MEDS ORDERED: KETOROLAC 60 MG/2 ML VIAL IM ONE (16:20)
[2019-08-28 16:49] VITALS: BP 144/97
== END 2019-08-28 16:48 | disposition home or self-care (01) ==
LOC: MED 15:26
DX: R07.9 Chest pain, unspecified (principal); I10 Essential (primary) hypertension; Z79.899 Other long term (current) drug therapy; Z98.890 Other specified postprocedural states
CPT/HCPCS: 93005; 96372; 99283; J1885; 99285